=== PATIENT | female | born 1955 | race Two or more races ===

== ENCOUNTER 2024-10-27 15:01 | Emergency (ER) | payer OTHER ==
[~2024-10-27] VITALS: Ht 167.6 cm; Wt 83.9 kg
[2024-10-27] MEDS ORDERED: VALSARTAN-HCTZ1 EAC4 (15:29)
[2024-10-27] MEDS ORDERED: NORVASC5 MG (15:30)
[2024-10-27] MEDS ORDERED: FAMOTIDINE/PF 20 MG in 0.9 % SODIUM CHLORIDE 8 ML IV PUSH STA (16:14)
[2024-10-27] MEDS ORDERED: 0.9 % SODIUM CHLORIDE 1,000 ML IV SCH (16:15)
[2024-10-27] MEDS ORDERED: ONDANSETRON HCL 2 MG/ML VIAL IV ONE (16:15)
[2024-10-27] MEDS ORDERED: ONDANSETRON HCL 2 MG/ML VIAL ONE (16:23)
[2024-10-27] MEDS ORDERED: FAMOTIDINE/PF 20 MG/2 ML VIAL ONE (16:23)
[2024-10-27 17:00] LABS: HEMATOCRIT 38.6 % (36.0-45.00); MEAN CELL VOLUME 86.6 fL (80.00-100.00); MEAN CORPUSCULAR HEMOGLOBIN 29.2 pg (27.00-32.0); MEAN CORPUSCULAR HGB CONC 33.7 g/dl (32.0-36.0); PLATELET COUNT 256 K/uL (150-450); RED BLOOD COUNT 4.46 M/uL (4.00-6.00); RED CELL DISTRIBUTION WIDTH 13.3 % (11.5-14.5)
[2024-10-27 17:37] LABS: ALBUMIN 3.6 gm/dL (3.4-5.0); BILIRUBIN TOTAL 0.9 mg/dL (0.3-1.2); CALCIUM 8.9 mg/dL (8.5-10.1); CREATININE SERUM 0.6 mg/dL (0.55-1.02); GFR 98.83; GLOBULINA 4.1 G/DL (2.4-3.5); POTASSIUM 4.03 mEq/L (3.5-5.1); TOTAL PROTEIN 7.7 gm/dL (6.4-8.2)
[2024-10-27] MEDS ORDERED: INTESTINEX680 M1 PO (20:11)
[2024-10-27] MEDS ORDERED: PEPCID AC20 MG PO (20:11)
== END 2024-10-27 20:37 | disposition home or self-care (01) ==
LOC: ER 15:04
PROVIDERS: General Practice
DX: B34.9 Viral infection, unspecified (principal); R19.7 Diarrhea, unspecified
CPT/HCPCS: 36415; 96365; 96366; 99282; J2405; J3490; J7030